=== PATIENT | male | born 1955 | race Two or more races ===

== ENCOUNTER 2018-01-20 14:16 | Emergency (ER) | payer OTHER ==
[~2018-01-20] VITALS: Ht 167.6 cm; Wt 81.6 kg
--- NOTE | 2018-01-20 14:35 | NUR ---
[id number] FROM [facility] FOR CHEST PAIN X 2 DAYS, NITRO X4, [id number] GIVEN BY EMS. IV STARTED EN ROUTE, RAC, 20G. A/OX 4. BREATHING EVEN AND UNLABORED. NO SOB, NAD, VITALS STABLE. SAFETY AND COMFORT MEASURES IN PLACE. MD AT BEDSIDE FOR EVAL.
[2018-01-20 14:54] LABS: BASOPHILS % (AUTO) 0.5 % (0.0-2.0); EOSINOPHILS % (AUTO) 3.5 % (0.0-6.0); HEMATOCRIT 32 % (39-51); HEMOGLOBIN 10.9 g/dL (13.5-17.5); LYMPHOCYTES # (AUTO) 1.6 /CMM (0.8-4.8); LYMPHOCYTES % (AUTO) 18.7 % (20.0-44.0); MEAN CORPUSCULAR HGB CONC 34 g/dl (31.0-36.0); MEAN CORPUSCULAR VOLUME 84 fL (80-96); MONOCYTES # (AUTO) 0.6 /CMM (0.1-1.30); MONOCYTES % (AUTO) 7.1 % (2.0-12.0); NEUTROPHILS # (AUTO) 5.8 /CMM (1.8-8.9); NEUTROPHILS % (AUTO) 70.2 % (43.0-81.0); PLATELET COUNT (AUTO) 310 /CMM (150-450); RDW COEFFICIENT OF VARIATION 14.5 (11.5-15.0); RED BLOOD CELL COUNT(AUTO) 3.79 MIL/uL (4.5-6.0); WHITE BLOOD COUNT (AUTO) 8.3 K/uL (4.3-11.0)
[2018-01-20 15:05] LABS: CALCIUM, SERUM 7.2 mg/dL (8.5-10.1); CARBON DIOXIDE 19 mmol/L (21-32); CHLORIDE 103 mmol/L (98-107); CREATININE 5.2 mg/dL (0.6-1.3); INR 0.89 (0.85-1.15); POTASSIUM 4.2 mmol/L (3.5-5.1); SODIUM SERUM 135 mmol/L (136-145); UREA NITROGEN, BLOOD 64 mg/dL (7-18)
[2018-01-20 15:11] LABS: TROPONIN I < 0.017 ng/mL (0.00-0.056)
[2018-01-20 15:14] LABS: GLUCOSE 357 mg/dL (74-106)
[2018-01-20] MEDS ORDERED: INSULIN LISPRO/ASPART 100 UNIT/ML CARTRIDGE SQ ONE (15:30)
--- NOTE | 2018-01-20 17:21 | NUR ---
REPEAT BLOOD SUGAR, 256. MD INFORMED.
[2018-01-20] MEDS ORDERED: CLONIDINE HCL 0.1 MG TABLET ONE (17:23)
--- NOTE | 2018-01-20 17:25 | NUR ---
PATIENTS BLOOD PRESSURE 191/104, MD INFORMED, ORDERED CLONIDINE 0.1MG. PATIENT MEDICATED PER MD ORDERS.
[2018-01-20] MEDS ORDERED: CLONIDINE HCL 0.1 MG TABLET PO ONE (17:30)
[2018-01-20 19:24] VITALS: BP 164/86
--- NOTE | 2018-01-20 19:25 | NUR ---
IV removed. Catheter intact and site benign. Pressure and 4x4 applied to site. No bleeding noted. Patient discharged to home in stable condition. Written and verbal after care instructions given. Patient verbalizes understanding of instruction.
== END 2018-01-20 19:25 | disposition home or self-care (01) ==
LOC: ER 14:21
DX: E11.65 Type 2 diabetes mellitus with hyperglycemia (principal); R07.89 Other chest pain; D64.9 Anemia, unspecified; E11.22 Type 2 diabetes mellitus with diabetic chronic kidney disease; I12.9 Hypertensive chronic kidney disease with stage 1 through stage 4 chronic kidney disease, or unspecified chronic kidney disease; N18.9 Chronic kidney disease, unspecified; E11.42 Type 2 diabetes mellitus with diabetic polyneuropathy; Z90.89 Acquired absence of other organs; Z88.0 Allergy status to penicillin; Z79.4 Long term (current) use of insulin
CPT/HCPCS: 36415; 71045; 80048; 82962; 84484 ×2; 85025; 85730; 93005 ×3; 96372; 99285; A4606; J1815; Z7610